=== PATIENT | male | born 2005 | race Hispanic/Latino ===

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

== ENCOUNTER 2023-02-10 11:36 | Emergency (ER) | payer OTHER ==
--- OUTSIDE RECORDS SUMMARY | 2023-02-10 11:40 | XMS REPORT | Continuity of Care Document ---
:2005 Author Organization [facility] t Address [address] [place] [address] Care Team Providers Name Role Phone Pcp, [...] Drug Active Univers ALLERGIE Class ity of [facility] Social History Social Habit Start Date Stop Date Quantity Comments Source Exposure to Not sure [facility] SARS-CoV-2 (event) Medica Branch Sex Assigned At [birth year] [facility] 00:00:00 00:00:00 [facility] Smoking Status Start Date Stop Date Source Unknown if ever smoked [facility] Medications Ordered Filled Start Stop Current Ordering Indication Dosage Frequency Signature Comments Components Source Medication Medication Date Date Medication? Clinician (SIG) Name Name benzonatate Yes [id number] 100mg Take 1 Univers 100 mg 4-21 capsule by ity of capsule 00:00: mouth 3 [place] 00 (three) Medical times Branch daily as needed for Cough. chlorphenir Yes [id number] 4mg Take 1 Univers amine 4 mg 4-21 tablet by ity of tablet 00:00: mouth [place] 00 every 6 Medical (six) Branch hours as needed for Allergies or Runny nose. multivitami Yes [id number] 1{capsu Take 1 Univers n capsule 4-21 le} capsule by ity of 00:00: mouth [place] 00 daily. Medical Branch calcium-mag Yes [id number] Take as Univers nesium-zinc 4-21 directed ity of 333-133-8.3 00:00: for daily [place] mg Tab 00 dose. [facility] Branch benzonatate Yes [id number] 100mg Take 1 Univers 100 mg 4-21 capsule by ity of capsule 00:00: mouth 3 [place] 00 (three) Medical times Branch daily as needed for Cough. chlorphenir Yes [id number] 4mg Take 1 Univers amine 4 mg 4-21 tablet by ity of tablet 00:00: mouth [place] 00 every 6 Medical (six) Branch hours as needed for Allergies or Runny nose. multivitami Yes [id number] 1{capsu Take 1 Univers n capsule 4-21 le} capsule by ity of 00:00: mouth [place] 00 daily. Medical Branch calcium-mag Yes [id number] Take as Univers nesium-zinc 4-21 directed ity of 333-133-8.3 00:00: for daily [place] mg Tab 00 dose. [facility] Immunizations Ordered Filled Immunization Date Status Comments [facility] Immunization Name Name SARS-COV-2 COVID-19 2021 Completed Unive rsity of PFIZER VACCINE 00:00:00 [facility] SARS-COV-2 COVID-19 2020-12-06 Completed Unive rsity of PFIZER VACCINE 00:00:00 [facility] Vital Signs Vital Name Observation Time Observation Value Comments Source Systolic blood 2020-09-20 03:20:00 125 mm[Hg] Univer sity of pressure [facility] Diastolic blood 2020-09-20 03:20:00 79 mm[Hg] Unive rsity of pressure [facility] Heart rate 2020-09-20 03:20:00 90 /min [facility] Body temperature 2020-09-20 03:20:00 36.17 [facility] Respiratory rate 2020-09-20 03:20:00 20 /[facility] Body weight 2020-09-20 03:20:00 81.647 kg [facility] Oxygen saturation in 2020-09-20 03:20:00 100 /min University Arterial blood by [facility] Pulse oximetry Branch Procedures Procedure Date / Time Performed Performing Clinician Emiliano e SARS-COV-2 COVID-19 2021 18:19:37 Doctor Unassigned, [facility] VACC[facility],0.3ML,IM Name Medical Branch (PFIZER) RAPID STREP SCREEN 2020-09-20 03:22:00 Tacos Jennings [facility] FOR GROUP A Medical Branch COVID-19 (ID NOW 2020-09-20 03:22:00 Tacos Jennings [facility] RAPID TESTING) Medical Branch NOTICE OF PRIVACY 2020-09-20 03:10:56 Doctor Unassigned, No [facility] PR[facility] Name Medical Branch Encounters Start End Encounter Admission Attending Care Care Encounter Source Date/Time Date/Time Type Type Clinicians Facility Department ID 2021 2021 Imm/Inj Nurse, Adc Pob Immunization [facility] [id number] Univers 12:56:08 12:56:20 Visit Baron Early [id number] ity [facility] [id number] [facility] [id number] Or dical [facility] [address] 2020-09-19 2020-09-19 Emergency Jennings, [facility] [id number] Univers 22:22:00 23:10:00 Tacos Ferro [id number] i ty [facility] [id number] [facility] [place] [id number] [facility] 084 Branch 2020-09-19 2020-09-19 Emergency X [place] ERT [id number] Univers 22:11:00 22:11:00 [facility] Results Test Description Test Time Test Comments Results Result Comments Source RAPID STREP SCREEN FOR GROUP A 2020-09-20 03:45:16 Test Item Value Reference Range Interpretation Comme nts Streptococcus pyogenes (group A) antigen (test code = 51622- 2) Negative Negative Lab Interpretation (test code = 19010-0) Normal [facility] NOW RAPID TESTING)2020-09-20 03:39:48 Test Item Value Reference Range Interpretation Comments SARS-CoV-2 Rapid ID NOW Positive Not Detected A (test code = 56892-7) ALFRED (test code = ALFRED) ID NOW COVID-19 Assay is an isothermal nucleic acid amplification test intended for the qualitative detection of nucleic acid from SARS-CoV-2 viral RNA in nasopharyngeal (INDUSTRIAL TECHNOLOGY EDUCATION TEACHER) specimens. It is used under Emergency Use [...] indicated. Lab Interpretation Abnormal (test code = 45424-4) [facility]
--- NOTE | 2023-02-10 12:28 | RAD REPORT ---
EXAM DESCRIPTION: RAD - Hand Left 3 View - 02/10/2023 12:20 pm CLINICAL HISTORY: PAIN COMPARISON: No comparisons FINDINGS/IMPRESSION: No acute fracture. No malalignment. No significant focal degenerative changes.
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
[2023-02-10 14:01] VITALS: BP 125/69; TEMP 98.7; O2SAT 100
== END 2023-02-10 12:54 | disposition home or self-care (01) ==
LOC: ER 11:36
DX: M79.642 Pain in left hand (principal)
CPT/HCPCS: 99283

== ENCOUNTER 2024-09-11 05:46 | Emergency (ER) | payer SELFPAY ==
--- OUTSIDE RECORDS SUMMARY | 2024-09-11 05:49 | XMS REPORT | Continuity of Care Document ---
Author Name Unknown Address [address] [place] [address] [facility] Address [address] [place] [address] Care Team Providers Care Health Safety And Environment Manager Name Role Phone Pcp, Patient Does Not Have A Primary Care Physic stacie Nurse, Adc Pob Immunization Attending Clinician Unavailable Baron Early DO Attending Clinician Tacos Jennings DO Attending Clinician [phone] Payers Payer Name Policy Type Policy Number Effective Date Expirati on Date Source Allergies, Adverse Reactions, Alerts Allergy Name Allergy Type Status Severity Reaction(s) Onset Date Inactive Date Treating Clinician Comments Source NO KNOWN ALLERGIE S Drug Class Active [facility] Social History Social Habit Start Date Stop Date Quantity Comments Source Exposure to SARS-CoV-2 (event) Not sure [facility] Sex Assigned At 2005 00:00:00 2005 00:00:00 [facility] Smoking Status Start Date Stop Date Source Unknown if ever smoked [facility] Medications Ordered Medication Name Filled Medication Name Start Date Stop Date Current Medication? Ordering Clinician Indication Dosage Frequency Signature (SIG) Comments Components Source benzonatate 100 mg capsule 09-19 00:00: 00 Yes [id number] 100mg Take 1 capsule by mouth 3 (three) times daily as needed for Cough. [facility] chlorphenir amine 4 mg tablet 09-19 00:00: 00 Yes [id number] 4mg Take 1 tablet by mouth every 6 (six) hours as needed for Allergies or Runny nose. [facility] multivitami n capsule 09-19 00:00: 00 Yes [id number] 1{capsu le} Take 1 capsule by mouth daily. [facility] calcium-mag nesium-zinc 333-133-8.3 mg Tab 09-19 00:00: 00 Yes [id number] Take as directed for daily dose. [facility] Vital Signs Vital Name Observation Time Observation Value Comments S rene Systolic blood pressure 2020-09-20 03:20:00 125 mm[Hg] [facility] Diastolic blood pressure 2020-09-20 03:20:00 79 mm[Hg] [facility] Heart rate 2020-09-20 03:20:00 90 /min [facility] Body temperature 2020-09-20 03:20:00 36.17 Reanna [facility] Respiratory rate 2020-09-20 03:20:00 20 /min [facility] Body weight 2020-09-20 03:20:00 81.647 kg [facility] Oxygen saturation in Arterial blood by Pulse oximetry 2020-09-20 03:20:00 100 /min [facility] Procedures Procedure Date / Time Performed Performing Clinicia n Source SARS-COV-2 COVID-19 VACCINE,0.3ML,IM (PFIZER) 2021 18:19:37 Doctor Unassigned, Sigel [facility] RAPID STREP SCREEN FOR GROUP A 2020-09-20 03:22:00 Tacos Jennings [facility] COVID-19 (ID NOW RAPID TESTING) 2020-09-20 03:22:00 Tacos Jennings [facility] NOTICE OF PRIVACY PRACTICES 2020-09-20 03:10:56 Doctor Unassigned, Sigel [facility] Encounters Start Date/Time End Date/Time Encounter Type Admission Type Attending Clinicians Care Facility Care Department Encounter ID Source 2023-02-05 09:17:50 2023-02-05 09:17:50 Outpatient [facility] [id number] Grover Treviño 2021 12:56:08 2021 12:56:20 Imm/Inj Visit Nurse, Marcy Pob Immunizatio Baron Auguste [facility] [id number] [facility] 2020-09-19 22:22:00 2020-09-19 23:10:00 Emergency Tacos Jennings [facility] [id number] [facility] 2020-09-19 22:11:00 2020-09-19 22:11:00 Emergency X [facility] ERT [id number] [facility] Results Test Description Test Time Test Comments Results Result Co mments Source [facility]2020-09-20 03:39:48* Test Item Value Reference Range Interpretation Comme nts SARS-CoV-2 Rapid ID NOW (test code = 57529-5) Positive Not Detected A ALFRED (test code = ALFRED) ID NOW COVID-19 As say is an isothermal nucleic acid amplification test intended for the qualitative detection of nucleic acid from SARS-CoV-2 viral RNA in nasopharyngeal (AUTOMOTIVE PARTS INTERPRETER) specimens. It is used under Emergency Use [...] patient testing if clinically indicated. Lab Interpretation (test code = 24078-7) Abnormal [facility]
[2024-09-11] MEDS ORDERED: MORPHINE 4 MG/ML SYR ONE (06:08)
[2024-09-11] MEDS ORDERED: ONDANSETRON 4 MG/2 ML VIAL ONE (06:08)
[2024-09-11] MEDS ORDERED: NA CHLORIDE 0.9% 1,000 ML ONE (06:08)
[2024-09-11 06:22] LABS: Absolute Basophils 0.1 K/uL (0-0.5); Absolute Eosinophils 0.1 K/uL (0-0.5); Absolute Lymphocytes (CBC) 1.3 K/uL (0.7-4.9); Absolute Monocytes 0.6 K/uL (0.1-1.3); Basophils % 0.4 % (0-1.3); Eosinophils % 0.4 % (0-4.4); Hematocrit 45.9 % (39.6-49.0); Hemoglobin 16.2 g/dL (13.6-17.9); Lymphocytes % 9.4 % (15.3-44.8); MCH 29.9 pg (27.0-35.0); MCHC 35.4 g/dL (32.0-36.0); MCV 84.5 fL (80-100); Monocytes % 4.2 % (3.3-12.3); Neutrophils % 85.6 % (41.7-73.7); Nucleated Red Blood Cells % 0.1 % (0-0); Platelets 280 thou/uL (152-406); RBC Red Blood Cell Count 5.43 M/uL (4.33-5.43); Red Cell Distribution Width 13.3 % (12.1-15.2)
[2024-09-11 06:42] LABS: Albumin 4.3 g/dL (3.4-5.0); Albumin/Globulin Ratio 1.3 (1.1-1.8); Anion Gap 12.4 mEq/L (5.0-15.0); Bilirubin Total 0.9 mg/dL (0.2-1.0); Globulin 3.4 g/dL (2.3-3.5); Potassium 3.4 mEq/L (3.5-5.1); Protein, Total 7.7 g/dL (6.4-8.2)
[2024-09-11 07:23] LABS: Blood Morphology Comment NOT SEEN (NOT SEEN); Platelet Estimate ADEQ; White Blood Cell Scan OK (OK)
--- NOTE | 2024-09-11 08:00 | RAD REPORT ---
EXAMINATION: CT Abdomen Pelvis W Contrast CLINICAL INDICATION: Male, 19 years old. ABD PAIN TECHNIQUE: CT abdomen and pelvis was performed, after the administration of IV contrast, as [facility]. Axial, sagittal and coronal reconstructions were obtained. One or more of the following dose reduction techniques were used: Automated exposure control, adjustment of the mA and k V according to patient size, and iterative reconstruction. Unless otherwise specified, incidental findings do not require dedicated imaging follow-up. COMPARISON: 12/16/2022 FINDINGS: LOWER CHEST: The visualized lung bases are clear. LIVER: Normal in size and contour. No focal lesion. Focal fatty infiltration along the falciform liga ment margins. BILIARY SYSTEM: No suspicious abnormalities. SPLEEN: Normal size. No focal lesion. PANCREAS: No mass, ductal dilation, or marcel-pancreatic fluid. ADRENALS: Normal; no mass. KIDNEYS: Normal size and contour. No hydronephrosis. URINARY BLADDER: Unremarkable. GASTROINTESTINAL TRACT: No evidence of free air, significant intra-abdominal free fluid, bowel obstru ction or abscess. APPENDIX: Normal appendix. LYMPH NODES: No lymphadenopathy. MUSCULOSKELETAL: No acute or suspicious osseous abnormality. ADDITIONAL FINDINGS: None. IMPRESSION: No acute or concerning abnormalities seen in the abdomen or pelvis.
--- NOTE | 2024-09-11 08:26 | ER ---
Nurse's Notes [facility] Name: Will Combs Age: 19 yrs Sex: Male : 2005 Arrival Date: 09/11/2024 Time: 05:46 Bed 18 Private MD: Diagnosis: Abdominal pain, unspecified Presentation: 09/11 06:00 Chief complaint: Patient states: mid abdominal pain X3 hr with 1 episode of vomiting. lg3 pain 8/10. 400mg ibuprofen taken CALL OR CONTACT [employer]ER. Coronavirus screen: Client denies travel out of the [place] in the last 14 days. At this time, the client does not indicate any symptoms associated with coronavirus-19. Ebola Screen: No symptoms or risks identified at this time. Initial Sepsis Screen: Does the patient meet any 2 criteria? No. Patient's initial sepsis screen is negative. Does the patient have a suspected source of infection? No. Patient's initial sepsis screen is negative. Risk Assessment: Do you want to hurt yourself or someone else? Patient reports no desire to harm self or others. Onset of symptoms was September 11, 2024. 06:00 Method Of Arrival: Ambulatory lg3 06:00 Acuity: IGNACIO 3 lg3 Triage Assessment: 06:03 General: Appears in no apparent distress. comfortable, Behavior is calm, cooperative. lg3 Pain: Complains of pain in abdomen Pain does not radiate. EENT: No deficits noted. No signs and/or symptoms were reported regarding the EENT system. Neuro: No deficits noted. Mera Agitation-Sedation Scale (RASS): 0 - Alert and Calm Level of Consciousness is awake, alert, obeys commands, Oriented to person, place, time, situation. Cardiovascular: No deficits noted. Denies chest pain, shortness of breath, Capillary refill < 3 seconds Clubbing of nail beds is absent JVD is absent Patient's skin is warm and dry. Respiratory: No deficits noted. Airway is patent Respiratory effort is even, unlabored, Respiratory pattern is regular, symmetrical. GI: Abdomen is round non-distended, obese, Bowel sounds present X 4 quads. Reports lower abdominal pain, upper abdominal pain, nausea, vomiting. : No signs and/or symptoms were reported regarding the genitourinary system. Derm: No deficits noted. No signs and/or symptoms reported regarding the dermatologic system. Skin is intact, is healthy with good turgor, Skin is dry, Skin is normal, Skin temperature is warm. Musculoskeletal: No deficits noted. No signs and/or symptoms reported regarding the musculoskeletal system. Circulation, motion, and sensation intact. Range of motion: intact in all extremities. Historical: - Allergies: 06:03 No Known Allergies; lg3 - Home Meds: 06:03 None [Active]; lg3 - PMHx: 06:03 None; lg3 - PSHx: 06:03 None; lg3 - Immunization history:: Adult Immunizations up to date. - Infectious Disease History:: Denies. - Social history:: Smoking status: Reported history of juuling and/or vaping. Patient/guardian denies using alcohol, street drugs. Screenin:04 [facility] ED Fall Risk Assessment (Adult) History of falling in the last 3 months, lg3 including since admission No falls in past 3 months (0 pts) Confusion or Disorientation No (0 pts) Intoxicated or Sedated No (0 pts) Impaired Gait No (0 pts) Mobility Assist Device Used No (0 pt) Altered Elimination No (0 pt) Score/Fall Risk Level 0 - 2 = Low Risk Oriented to surroundings, Maintained a safe environment, Educated pt \T\ family on fall prevention, incl call for assistance when getting out of bed, Assessed \T\ reinforced patient's understanding of fall precautions. Abuse screen: Denies threats or abuse. Denies injuries from another. Nutritional screening: No deficits noted. Tuberculosis screening: No symptoms or risk factors identified. Assessment: 06:04 General: see triage assessment. GI: Abd is soft X 4 quads Abdomen is tender to lg3 palpation in umbilical area. 06:57 Reassessment: Patient appears in no apparent distress at this time. Patient and/or lg3 family updated on plan of care and expected duration. Pain level reassessed. Patient is alert, oriented x 3, equal unlabored respirations, skin warm/dry/pink. Patient states feeling better. Patient states symptoms have improved. 07:45 Reassessment: Patient appears in no apparent distress at this time. Patient and/or jl7 family updated on plan of care and expected duration. Pain level reassessed. Patient is alert, oriented x 3, equal unlabored respirations, skin warm/dry/pink. GI: Patient currently denies nausea. Derm: Skin is pink, warm \T\ dry. Vital Signs: 06:00 BP 148 / 87; Pulse 71; Resp 16 S; Temp 97.9(O); Pulse Ox 100% on R/A; Weight 90.72 kg lg3 (R); Height 5 ft. 8 in. ; Pain 8/10; 08:15 BP 142 / 80; Pulse 72; Resp 15; Pulse Ox 99% ; Pain 0/10; jl7 06:00 Body Mass Index 30.41 (90.72 kg, 172.72 cm) lg3 06:00 Pain Scale: Adult lg3 08:15 Pain Scale: Adult jl7 ED Course: 05:48 Patient arrived in ED. jj6 05:52 Kenny Chaidez MD is Attending Physician. sp3 06:00 Nadya Feliciano RN is Primary Nurse. lg3 06:03 Triage completed. lg3 06:03 Arm band placed on right wrist. lg3 06:04 Patient has correct armband on for positive identification. Placed in gown. Bed in low lg3 position. Call light in reach. Side rails up X 1. Client placed on continuous cardiac and pulse oximetry monitoring. NIBP monitoring applied. Door closed. Noise minimized. Warm blanket given. Pillow given. Family accompanied patient. 06:04 Inserted saline lock: 20 gauge in right antecubital area, using aseptic technique. af3 Blood collected. Flushed with 10 mL NS. 06:12 CBC with Diff Sent. af3 06:12 CMP Sent. af3 06:12 Lipase Sent. af3 07:15 Attending Physician role handed off by Kenny Chaidez MD rn 07:15 Cornelio Willis MD is Attending Physician. rn 07:16 CT Abd/Pelvis - IV Contrast Only In Process Unspecified. EDMS 08:15 Provided Education on: discharge. jl7 08:15 No provider procedures requiring assistance completed. IV discontinued, intact, jl7 bleeding controlled, No redness/swelling at site. Pressure dressing applied. Administered Medications: 06:19 Drug: Ondansetron IVP 4 mg IVP once; over 2 minutes Route: IVP; Site: right antecubital;lg3 06:57 Follow up: Response: No adverse reaction; Marked relief of symptoms lg3 06:19 Drug: morphine IVP or IV 4 mg IVP once over 4 mins Route: IVP; Infused Over: 4 mins; lg3 Site: right antecubital; 06:57 Follow up: Response: No adverse reaction; Marked relief of symptoms lg3 06:19 Drug: NS 0.9% IV 1000 ml IV at 1 bolus Per protocol; to be given as a bolus over 60 lg3 minutes Route: IV; Rate: 1 bolus; Site: right antecubital; 07:30 Follow up: Response: No adverse reaction; IV Status: Completed infusion; IV Intake: jl7 1000ml 08:42 Not Given (Not needed): [id number] mg IVP once jl7 08:42 Drug: Ciprofloxacin PO 500 mg PO once Route: PO; jl7 08:43 Follow up: Response: Medication Administered at Departure; Medication administered at jl7 discharge. 08:42 Drug: metroNIDAZOLE PO 500 mg PO once Route: PO; jl7 08:43 Follow up: Response: Medication Administered at Departure; Medication administered at jl7 discharge. Medication: 08:15 VIS not applicable for this client. jl7 Intake: 07:30 IV: 1000ml; Total: 1000ml. 7 Outcome: 08:25 Discharge ordered by . rn 08:44 Discharged to home ambulatory, jl7 08:44 Condition: stable 08:44 Discharge instructions given to patient, Instructed on discharge instructions, follow up and referral plans. medication usage, Demonstrated understanding of instructions, follow-up care, medications, Prescriptions given X 3, 08:44 Patient left the ED. jl7 Signatures: Dispatcher [employer] EDCornelio Sarah MD MD rn Leal, Jahala, RN RN jl7 Nadya Feliciano RN RN lg3 Kenny Chaidez MD MD sp3 Connie Proj6 Stephanie Kamara3
--- NOTE | 2024-09-11 08:26 | EDPHYS ---
Physician Documentation [facility] Name: Will Combs Age: 19 yrs Sex: Male : 2005 Arrival Date: 09/11/2024 Time: 05:46 Bed 18 Private MD: ED Physician Cornelio Willis HPI: 09/11 06:06 This 19 yrs old Male presents to ER via Ambulatory with complaints of sp3 Abdominal Pain. 06:06 19-year-old male with history of colitis presents to the ED with chief complaint sp3 periumbilical pain after getting off the bus approximately 2 hours ago where he came from [place]. He endorses nausea and vomiting x 1. He denies fever, neck pain, chest pain, shortness of breath, diarrhea, back pain, flank pain, dysuria, urinary frequency, gross visualized hematuria, blood or mucus in his emesis on the single episode, known sick contacts, or any other signs or symptoms on ROS at this time.. Historical: - Allergies: 06:03 No Known Allergies; lg3 - Home Meds: 06:03 None [Active]; lg3 - PMHx: 06:03 None; lg3 - PSHx: 06:03 None; lg3 - Immunization history:: Adult Immunizations up to date. - Infectious Disease History:: Denies. - Social history:: Smoking status: Reported history of juuling and/or vaping. Patient/guardian denies using alcohol, street drugs. ROS: 06:09 Constitutional: Negative for fever, chills, and weight loss, Eyes: Negative for injury, sp3 pain, redness, and discharge, ENT: Negative for injury, pain, and discharge, Neck: Negative for injury, pain, and swelling, Cardiovascular: Negative for chest pain, palpitations, and edema, Respiratory: Negative for shortness of breath, cough, wheezing, and pleuritic chest pain, Back: Negative for injury and pain, : Negative for injury, bleeding, discharge, and swelling, MS/Extremity: Negative for injury and deformity, Skin: Negative for injury, rash, and discoloration, Neuro: Negative for headache, weakness, numbness, tingling, and seizure, Psych: Negative for depression, anxiety, suicide ideation, homicidal ideation, and hallucinations, Allergy/Immunology: Negative for hives, rash, and allergies, Endocrine: Negative for neck swelling, polydipsia, polyuria, polyphagia, and marked weight changes, Hematologic/Lymphatic: Negative for swollen nodes, abnormal bleeding, and unusual bruising, 06:09 All other systems are negative, Exam: 06:10 Constitutional: This is a well developed, well nourished patient who is awake, alert, sp3 and in no acute distress. Head/Face: Normocephalic, atraumatic. Eyes: Pupils equal round and reactive to light, extra-ocular motions intact. Lids and lashes normal. Conjunctiva and sclera are non-icteric and not injected. Cornea within normal limits. Periorbital areas with no swelling, redness, or edema. Neck: Trachea midline, no thyromegaly or masses palpated, and no cervical lymphadenopathy. Supple, full range of motion without nuchal rigidity, or vertebral point tenderness. No Meningismus. Chest/axilla: Normal chest wall appearance and motion. Nontender with no deformity. No lesions are appreciated. Cardiovascular: Regular rate and rhythm with a normal S1 and S2. No gallops, murmurs, or rubs. Normal PMI, no JVD. No pulse deficits. Respiratory: Lungs have equal breath sounds bilaterally, clear to auscultation and percussion. No rales, rhonchi or wheezes noted. No increased work of breathing, no retractions or nasal flaring. Back: No spinal tenderness. No costovertebral tenderness. Full range of motion. Skin: Warm, dry with normal turgor. Normal color with no rashes, no lesions, and no evidence of cellulitis. MS/ Extremity: Pulses equal, no cyanosis. Neurovascular intact. Full, normal range of motion. Neuro: Awake and alert, GCS 15, oriented to person, place, time, and situation. Cranial nerves II-XII grossly intact. Motor strength 5/5 in all extremities. Sensory grossly intact. Cerebellar exam normal. Normal gait. Psych: Awake, alert, with orientation to person, place and time. Behavior, mood, and affect are within normal limits. 06:10 Abdomen/GI: Patient has pain to palpation periumbilically with generalized dispersion without peritoneal signs, rebound or guarding. Nonsurgical abdomen., Vital Signs: 06:00 BP 148 / 87; Pulse 71; Resp 16 S; Temp 97.9(O); Pulse Ox 100% on R/A; Weight 90.72 kg lg3 (R); Height 5 ft. 8 in. ; Pain 8/10; 08:15 BP 142 / 80; Pulse 72; Resp 15; Pulse Ox 99% ; Pain 0/10; jl7 06:00 Body Mass Index 30.41 (90.72 kg, 172.72 cm) lg3 06:00 Pain Scale: Adult lg3 08:15 Pain Scale: Adult jl7 MDM: 06:00 Medical Screening Exam initiated sp3 06:10 Data reviewed: vital signs, nurses notes, old medical records, lab test result(s), sp3 radiologic studies. ED course: 19-year-old male with abdominal pain in the setting of prior colitis. Differential diagnosis includes recurrent colitis, foodborne illness, viral illness, surgical pathology, biliary pathology, among others. I am not highly suspicious of , vascular, cardiopulmonary or any other critical process including sepsis or shock. Vital signs are normal. Will obtain CT scan of the abdomen pelvis with IV contrast, general labs, UA and treat with IV fluids, IV morphine, and IV ondansetron. Disposition pending workup and patient course and probable signed out to daytime physician for reevaluation and final disposition.. 08:23 Differential diagnosis: appendicitis, diverticulitis, non-specific abd pain, rn pancreatitis, Peptic Ulcer Disease, Perf. Duodenal Ulcer, Perf. Gastric Ulcer. Counseling: I had a detailed discussion with the patient and/or guardian regarding the historical points, exam findings, and any diagnostic results supporting the discharge/admit diagnosis, lab results, radiology results, the need for outpatient follow up, to return to the emergency department if symptoms worsen or persist or if there are any questions or concerns that arise at home. Special discussion: Based on the patient's Hx, exam, and Dx evaluation, there is no indication for emergent surgery or inpatient Tx. It is understood by the patient/guardian that if the Sx's persist or worsen they need to return immediately for re-evaluation. I discussed with the patient/guardian in detail that at this point there is no indication for admission to the hospital. It is understood, however, that if the symptoms persist or worsen the patient needs to return immediately for re-evaluation. ED course: No acute findings and imaging or blood work. Slight elevation of WBC. Most likely early infection. Specifically no evidence for emergent surgery or admission to hospital. Will place on antibiotics and given return precautions. I have personally reviewed all of the results, including but not limited to blood tests and imaging deemed necessary to safely discharge this patient at this time. All results given to and printed out for patient. I personally went over all the results with the patient and answered all questions. Patient will follow-up with PCP and or specialist as discussed. Return precautions given and understood.. 09/11 06:06 Order name: CBC with Diff; Complete Time: 07:35 sp3 09/11 06:06 Order name: CMP; Complete Time: 06:55 sp3 09/11 06:06 Order name: Lipase; Complete Time: 06:55 sp3 09/11 07:24 Order name: CBC Smear Scan; Complete Time: 07:35 EDMS 09/11 06:06 Order name: CT Abd/Pelvis - IV Contrast Only; Complete Time: 08:02 sp3 09/11 06:06 Order name: IV Saline Lock; Complete Time: 06:12 sp3 09/11 06:06 Order name: Labs collected and sent; Complete Time: 06:12 sp3 Administered Medications: 06:19 Drug: Ondansetron IVP 4 mg IVP once; over 2 minutes Route: IVP; Site: right antecubital;lg3 06:57 Follow up: Response: No adverse reaction; Marked relief of symptoms lg3 06:19 Drug: morphine IVP or IV 4 mg IVP once over 4 mins Route: IVP; Infused Over: 4 mins; lg3 Site: right antecubital; 06:57 Follow up: Response: No adverse reaction; Marked relief of symptoms lg3 06:19 Drug: NS 0.9% IV 1000 ml IV at 1 bolus Per protocol; to be given as a bolus over 60 lg3 minutes Route: IV; Rate: 1 bolus; Site: right antecubital; 07:30 Follow up: Response: No adverse reaction; IV Status: Completed infusion; IV Intake: jl7 1000ml 08:42 Not Given (Not needed): [id number] mg IVP once jl7 08:42 Drug: Ciprofloxacin PO 500 mg PO once Route: PO; jl7 08:43 Follow up: Response: Medication Administered at Departure; Medication administered at jl7 discharge. 08:42 Drug: metroNIDAZOLE PO 500 mg PO once Route: PO; jl7 08:43 Follow up: Response: Medication Administered at Departure; Medication administered at jl7 discharge. Disposition Summary: 09/11/24 08:25 Discharge Ordered Notes: Location: Home rn Problem: new rn Symptoms: have improved rn Condition: Stable rn Diagnosis - Abdominal pain, unspecified rn Followup: rn - With: Private Physician - When: As needed - Reason: Recheck today's complaints, Re-evaluation by your physician Discharge Instructions: - Discharge Summary Sheet rn - Abdominal Pain, Adult rn Forms: - Medication Reconciliation Form rn - Antibiotic rn acute care - Prescription Opioid Use rn - Patient Portal Instructions rn - Leadership Thank You Letter rn Prescriptions: - ondansetron 4 mg Oral Tablet,disintegrating - take 1 tablet ORAL route every 8 hours As needed; 12 tablet; Refills: 0, rn Product Selection Permitted - Flagyl 500 mg Oral tablet - take 1 tablet ORAL route every 12 hours for 10 days; 20 tablet; Refills: 0, rn Product Selection Permitted - Cipro 500 mg Oral tablet - take 1 tablet ORAL route every 12 hours for 10 days; 20 tablet; Refills: 0, rn Product Selection Permitted Signatures: Dispatcher [employer] EDMS Cornelio Willis MD MD rn Leal, Jahala RN RN jl7 Nadya Feliciano RN RN lg3 Kenny Chaidez MD MD sp3 Corrections: (The following items were deleted from the chart) 06:07 06:07 CBC+H.LAB.BRZ ordered. EDMS EDMS 06:07 06:07 COMPREHENSIVE METABOLIC PANEL+C.LAB.BRZ ordered. EDMS EDMS 06:07 06:07 LIPASE+C.LAB.BRZ ordered. EDMS EDMS 06:07 06:07 Urinalysis+U.LAB.BRZ ordered. EDMS EDMS 06:07 06:07 Abdomen Pelvis W Con+CT.RAD.BRZ ordered. EDMS EDMS
[2024-09-11] MEDS ORDERED: CIPROFLOXACIN HCL 500 MG TAB ONE (08:35)
[2024-09-11] MEDS ORDERED: metroNIDAZOLE 500 MG TABLET ONE (08:35)
[2024-09-11 08:54] VITALS: TEMP 97.9
[2024-09-11 08:55] VITALS: BP 142/80; O2SAT 99
== END 2024-09-11 08:44 | disposition home or self-care (01) ==
LOC: ER 05:46
DX: R10.9 Unspecified abdominal pain (principal)
CPT/HCPCS: 36415; 74177; 80053; 83690; 85025; 96361; 96374; 96375; 99284; J2405; J7030; Q9967